=== PATIENT | female | born 1995 | race Caucasian/White ===

== ENCOUNTER 2021-02-21 11:42 | Outpatient (CLI) | payer MEDICAID, SELFPAY ==
--- NOTE | 2021-02-21 | US_ITS ---
WS: [id number] ULTRASOUND EARLY TECHNIQUE: Transabdominal sonography of the pelvis was performed. Followed by transvaginal sonography to better evaluate the uterus and ovaries. CLINICAL INFORMATION: THREATENED AB Beta hCG: Unknown. COMPARISON: None. FINDINGS: UTERUS AND GESTATIONAL SAC No evidence of intrauterine gestation. Cervix is closed and normal in appearance. Cervix measures 3.6 cm. Normal endometrium measuring 7 mm. OVARIES Right ovary: Normal. Left ovary: Complex cystic lesion left ovary likely corpus luteum cyst or hemorrhagic cyst measuring 2.2 x 1.7 x 1.9 cm with some internal debris. FREE FLUID Present US/US OB <=14 wk fetus w transvag IMPRESSION: 1. No evidence of intrauterine gestation. 2. Cervix is closed. 3. Small amount of free fluid in the cul-de-sac. 4. Right ovary is normal. 5. Complex cystic lesion left ovary likely Corpus luteum cyst or hemorrhagic c yst measuring 2.2 x 1.7 x 1.9 cm with internal debris.
== END 2021-02-21 11:43 | disposition home or self-care (01) ==
PROVIDERS: PCP Family Medicine; Visit Provider Family Medicine
DX: O20.0 Threatened abortion (principal); N83.9 Noninflammatory disorder of ovary, fallopian tube and broad ligament, unspecified